=== PATIENT | male | born 1950 | race Caucasian/White ===

== ENCOUNTER 2018-07-25 20:14 | Emergency (ER) | payer MEDICARE ==
[~2018-07-25] VITALS: Ht 170.2 cm; Wt 63.7 kg
[2018-07-25] MEDS ORDERED: SODIUM CHLORIDE 0.9% 1,000 ML IV ONE (20:30)
[2018-07-25] MEDS ORDERED: QUET25TA PO (20:35)
[2018-07-25] MEDS ORDERED: SODIUM CHLORIDE 0.9% 100 ML ONE (20:43)
[2018-07-25] MEDS ORDERED: IOVERSOL 320 MG/ML 100 ML VIAL ONE (20:43)
[2018-07-25 20:58] LABS: CALCIUM, TOTAL 8.8 mg/dL (8.8-10.5); CREATININE 1.57 mg/dL (0.60-1.30); POTASSIUM 4.6 mmol/L (3.5-5.1)
[2018-07-25 21:00] LABS: BASOPHILS % (AUTO) 0.8 % (0.0-2.0); EOSINOPHILS % (AUTO) 5.1 % (1.0-6.0); HEMATOCRIT 35.2 % (41-53); HEMOGLOBIN 11.5 g/dL (13.5-17.5); LYMPHOCYTES # (AUTO) 1.6 K/uL (1.0-4.8); LYMPHOCYTES % (AUTO) 32.8 % (22.0-44.0); MEAN CORPUSCULAR HGB CONC 32.8 G/dL (31.0-37.0); MEAN CORPUSCULAR VOLUME 95 fL (80-100); MONOCYTES # (AUTO) 0.7 K/uL (0.1-1.0); NEUTROPHILS # (AUTO) 2.3 K/uL (1.8-7.7); NEUTROPHILS % (AUTO) 46.3 % (40.0-70.0); PLATELET COUNT (AUTO) 153 K/uL (150-450); RED BLOOD CELL COUNT(AUTO) 3.73 MIL/uL (4.50-5.90); RED CELL DISTRIBUTION WIDTH 13.6 % (11.5-14.5)
[2018-07-25 21:03] LABS: ALBUMIN 3.6 g/dL (3.4-5.0); BILIRUBIN,TOTAL 0.3 mg/dL (0.1-1.0); TOTAL PROTEIN, SERUM 7.4 g/dL (6.4-8.2)
[2018-07-25 22:53] LABS: APPEARANCE,URINE CLEAR (CLEAR); BILIRUBIN,URINE NEGATIVE (NEGATIVE); GLUCOSE, URINE (UA) NEGATIVE (NEGATIVE); KETONES,URINE NEGATIVE (NEGATIVE); LEUKOCYTE ESTERASE ,URINE NEGATIVE (NEGATIVE); NITRATE,URINE NEGATIVE (NEGATIVE); OCCULT BLOOD,URINE NEGATIVE (NEGATIVE); PROTEIN,URINE NEGATIVE (NEGATIVE); UROBILINOGEN,URINE 0.2 mg/dL (<=1.0)
[2018-07-25 23:22] LABS: AMPHET/METH SCREEN,URINE NEGATIVE (NEGATIVE); BARBITURATE SCREEN, URINE NEGATIVE (NEGATIVE); BENZODIAZEPINES SCREEN,URINE NEGATIVE (NEGATIVE); CANNABINOID SCREEN,URINE NEGATIVE (NEGATIVE); COCAINE SCREEN,URINE NEGATIVE (NEGATIVE); METHADONE SCREEN, URINE NEGATIVE (NEGATIVE); OPIATE SCREEN,URINE NEGATIVE (NEGATIVE); PHENCYCLIDINE SCREEN,URINE NEGATIVE (NEGATIVE)
[2018-07-26 01:10] VITALS: BP 166/102
== END 2018-07-26 02:33 | disposition home or self-care (01) ==
LOC: EMS 20:19
DX: S30.0XXA Contusion of lower back and pelvis, initial encounter (principal); S30.1XXA Contusion of abdominal wall, initial encounter; F10.129 Alcohol abuse with intoxication, unspecified; N28.9 Disorder of kidney and ureter, unspecified; R41.82 Altered mental status, unspecified; K70.30 Alcoholic cirrhosis of liver without ascites; F17.210 Nicotine dependence, cigarettes, uncomplicated; F20.9 Schizophrenia, unspecified; W19.XXXA Unspecified fall, initial encounter; Y93.89 Activity, other specified; Y92.89 Other specified places as the place of occurrence of the external cause; Y99.8 Other external cause status; Y90.8 Blood alcohol level of 240 mg/100 ml or more
CPT/HCPCS: 36415; 70450; 72125; 74177; 80053; 80307; 81003; 85025; 96360; 99291; 99406; G0480; J7050; Q9967

== ENCOUNTER 2020-10-05 07:00 | Inpatient (IN) | payer MEDICARE ==
[~2020-10-05] VITALS: Ht 170.2 cm; Wt 69.7 kg
[~2020-10-05 07:00] MED LIST: QUET25TA PO
[2020-10-05] MEDS ORDERED: ACETAMINOPHEN 500 MG TABLET PO ONE (07:15)
[2020-10-05] MEDS ORDERED: ANTIHYPERTENSIVE PO (07:17)
[2020-10-05] MEDS ORDERED: QUET100T PO (07:17)
[2020-10-05] MEDS ORDERED: SODIUM CHLORIDE 0.9% 1,000 ML IV ONE (09:05)
[2020-10-05 09:06] LABS: COVID AG,FIA SOURCE NASOPHARYNGEAL
[2020-10-05] MEDS ORDERED: SODIUM CHLORIDE 0.9% 0 ML ONE (09:06)
[2020-10-05 09:18] LABS: BASOPHILS % (AUTO) 0.5 % (0.0-2.0); EOSINOPHILS % (AUTO) 1.9 % (1.0-6.0); HEMATOCRIT 34.2 % (41-53); HEMOGLOBIN 11.2 g/dL (13.5-17.5); LYMPHOCYTES # (AUTO) 0.5 K/uL (1.0-4.8); LYMPHOCYTES % (AUTO) 5.8 % (22.0-44.0); MEAN CORPUSCULAR HEMOGLOBIN 29.1 pg (26.0-34.0); MEAN CORPUSCULAR HGB CONC 32.9 G/dL (31.0-37.0); MEAN CORPUSCULAR VOLUME 89 fL (80-100); MONOCYTES # (AUTO) 1.1 K/uL (0.1-1.0); NEUTROPHILS # (AUTO) 7.3 K/uL (1.8-7.7); NEUTROPHILS % (AUTO) 79.8 % (40.0-70.0); PLATELET COUNT (AUTO) 153 K/uL (150-450); RED BLOOD CELL COUNT(AUTO) 3.86 MIL/uL (4.50-5.90)
[2020-10-05] MEDS ORDERED: BUPIVACAINE/EPI/PF 0.5% 30 ML VIAL ONE (09:24)
[2020-10-05] MEDS ORDERED: 0.9% SODIUM CHLORIDE 10 ML SYRINGE IVP PRN (09:30)
[2020-10-05] MEDS ORDERED: ACETAMINOPHEN 325 MG TABLET PO PRN (09:30)
[2020-10-05] MEDS ORDERED: ONDANSETRON HCL 4 MG/2 ML VIAL IVP PRN (09:30)
[2020-10-05] MEDS ORDERED: BUPIVACAINE HCL/PF 0.5% 30 ML VIAL ONE (09:31)
[2020-10-05] MEDS ORDERED: SODIUM CL IRRIG SOLN BAG 0 ML IRRIG ONE (09:33)
[2020-10-05 09:34] LABS: CALCIUM, TOTAL 8.8 mg/dL (8.8-10.5); CREATININE 1.8 mg/dL (0.60-1.30); POTASSIUM 4.2 mmol/L (3.5-5.1)
[2020-10-05 09:35] LABS: PROTHROMBIN TIME 11.1 SEC (9.4-11.6)
[2020-10-05 09:41] LABS: ALBUMIN 3.4 g/dL (3.4-5.0); BILIRUBIN,TOTAL 0.2 mg/dL (0.1-1.0); TOTAL PROTEIN, SERUM 7.3 g/dL (6.4-8.2)
[2020-10-05] MEDS ORDERED: BUPIVACAINE LIPOSOME/PF 1.3%-13.3MG/ML SUSPENSION 20 ML VIAL INJ ONE (09:45)
[2020-10-05] MEDS ORDERED: TRANEXAMIC ACID 1,000 MG/10 ML VIAL ONE (10:04)
[2020-10-05] MEDS ORDERED: SODIUM CHLORIDE 0.9% 100 ML ONE (10:04)
[2020-10-05] MEDS ORDERED: SUGAMMADEX SODIUM 200 MG/2 ML VIAL IVP ONE ×2 (10:50→11:21)
[2020-10-05] MEDS ORDERED: IPRATROPIUM BROMIDE 0.5 MG/2.5 ML NEB SOLUTION NEB PRN (11:00)
[2020-10-05] MEDS ORDERED: ALBUTEROL SULFATE 2.5 MG/0.5 ML NEB SOLUTION NEB PRN (11:00)
[2020-10-05] MEDS ORDERED: BISACODYL 10 MG RECTAL RECTAL SUPPOSITORY PR PRN (11:00)
[2020-10-05] MEDS ORDERED: SODIUM CHLORIDE 0.9% 1,000 ML ONE (11:30)
[2020-10-05 13:01] VITALS: BP 99/53
[2020-10-05] MEDS ORDERED: ACET160E39 PO (13:21)
[2020-10-05] MEDS ORDERED: GABA-1181 PO (13:21)
[2020-10-05] MEDS ORDERED: ATOR40TA71 PO (13:21)
[2020-10-05] MEDS ORDERED: QUET400T54 PO (13:21)
[2020-10-05] MEDS ORDERED: OMEP20 PO (13:21)
[2020-10-05] MEDS ORDERED: AMLO5TAB66 PO (13:21)
[2020-10-05 15:52] VITALS: BP 108/56
[2020-10-05] MEDS: HEPARIN SODIUM,PORCINE 5,000 UNITS/ML VIAL SQ SCH ×2 (16:32→23:43)
[2020-10-05] MEDS: MORPHINE SULFATE 2 MG/ML SYRINGE IVP PRN (17:49)
[2020-10-05 19:05] VITALS: BP 108/62
[2020-10-05] MEDS: DOCUSATE SODIUM 100 MG CAPSULE PO SCH (20:35)
[2020-10-05 23:30] VITALS: BP 128/75
[2020-10-05] MEDS: ZOLPIDEM TARTRATE 5 MG TABLET PO PRN (23:43)
[2020-10-06] MEDS: MAGNESIUM HYDROXIDE SUSPENSION 30 ML UDCUP PO PRN (02:52)
[2020-10-06 04:10] VITALS: BP 130/73
[2020-10-06] MEDS ORDERED: FentaNYL CITRATE PF 100 MCG/2 ML VIAL IVP ONE (06:11)
[2020-10-06] MEDS ORDERED: ONDANSETRON HCL 4 MG/2 ML VIAL IVP ONE (06:11)
[2020-10-06] MEDS ORDERED: 0.9% SODIUM CHLORIDE 10 ML VIAL IVP ONE (06:11)
[2020-10-06] MEDS ORDERED: PROPOFOL 1% 20 ML VIAL IVP ONE (06:11)
[2020-10-06] MEDS ORDERED: LIDOCAINE/PF 2% 5 ML VIAL IM ONE (06:11)
[2020-10-06] MEDS ORDERED: PHENYLEPHRINE HCL 10 MG/ML VIAL IVP ONE (06:11)
[2020-10-06] MEDS ORDERED: MIDAZOLAM HCL 2 MG/2 ML VIAL IVP ONE (06:11)
[2020-10-06] MEDS ORDERED: ROCURONIUM BROMIDE 10 MG/ML 5 ML VIAL IVP ONE (06:11)
[2020-10-06] MEDS ORDERED: DEXAMETHASONE SOD PHOS 4 MG/ML VIAL IVP ONE (06:11)
[2020-10-06] MEDS: HYDROCODONE/ACETAMINOPHEN 5-325 MG TABLET PO PRN ×2 (08:03→20:47)
[2020-10-06 08:04] VITALS: BP 121/75
[2020-10-06] MEDS: HEPARIN SODIUM,PORCINE 5,000 UNITS/ML VIAL SQ SCH ×2 (08:05→16:18)
[2020-10-06] MEDS: DOCUSATE SODIUM 100 MG CAPSULE PO SCH ×2 (08:05→20:39)
[2020-10-06 15:36] VITALS: BP 122/63
[2020-10-06 20:16] VITALS: BP 126/79
[2020-10-06] MEDS: ZOLPIDEM TARTRATE 5 MG TABLET PO PRN (20:40)
[2020-10-06 23:47] VITALS: BP 123/75
[2020-10-07] VITALS (15 sets, daily range): BP systolic 114–145; BP diastolic 62–91
[2020-10-07] MEDS: MORPHINE SULFATE 2 MG/ML SYRINGE IVP PRN ×2 (00:03→08:35)
[2020-10-07] MEDS: MAGNESIUM HYDROXIDE SUSPENSION 30 ML UDCUP PO PRN (00:03)
[2020-10-07] MEDS: HEPARIN SODIUM,PORCINE 5,000 UNITS/ML VIAL SQ SCH ×2 (00:12→08:35)
[2020-10-07] MEDS: HYDROCODONE/ACETAMINOPHEN 5-325 MG TABLET PO PRN ×2 (04:48→20:22)
[2020-10-07] MEDS: DOCUSATE SODIUM 100 MG CAPSULE PO SCH ×2 (08:35→20:21)
[2020-10-07] MEDS: ONDANSETRON HCL 4 MG/2 ML VIAL IVP PRN (11:13)
[2020-10-07 15:15] LABS: BASOPHILS % (AUTO) 0.6 % (0.0-2.0); EOSINOPHILS % (AUTO) 0.7 % (1.0-6.0); LYMPHOCYTES # (AUTO) 0.9 K/uL (1.0-4.8); LYMPHOCYTES % (AUTO) 12.4 % (22.0-44.0); MEAN CORPUSCULAR HEMOGLOBIN 29.2 pg (26.0-34.0); MEAN CORPUSCULAR HGB CONC 32.4 G/dL (31.0-37.0); MEAN CORPUSCULAR VOLUME 90 fL (80-100); MONOCYTES # (AUTO) 1.6 K/uL (0.1-1.0); MONOCYTES % (AUTO) 21.8 % (2.0-9.0); NEUTROPHILS # (AUTO) 4.7 K/uL (1.8-7.7); NEUTROPHILS % (AUTO) 64.5 % (40.0-70.0); PLATELET COUNT (AUTO) 159 K/uL (150-450); RED BLOOD CELL COUNT(AUTO) 2.26 MIL/uL (4.50-5.90); RED CELL DISTRIBUTION WIDTH 14.7 % (11.5-14.5)
[2020-10-07 15:17] LABS: CALCIUM, TOTAL 8.6 mg/dL (8.8-10.5); CREATININE 1.84 mg/dL (0.60-1.30)
[2020-10-07 15:22] LABS: HEMATOCRIT 20.4 % (41-53); HEMOGLOBIN 6.6 g/dL (13.5-17.5)
[2020-10-07 15:24] LABS: ALBUMIN 2.9 g/dL (3.4-5.0); BILIRUBIN,TOTAL 0.3 mg/dL (0.1-1.0); TOTAL PROTEIN, SERUM 6.4 g/dL (6.4-8.2)
[2020-10-07 16:22] LABS: HEMATOCRIT 19.2 % (41-53); HEMOGLOBIN 6.2 g/dL (13.5-17.5)
[2020-10-07] MEDS ORDERED: SODIUM CHLORIDE 0.9% 1,000 ML ONE (16:36)
[2020-10-07] MEDS ORDERED: SODIUM CHLORIDE 0.9% 500 ML IV ONE (16:46)
[2020-10-07] MEDS: RIVAROXABAN 10 MG TABLET PO SCH (17:19)
[2020-10-07] MEDS ORDERED: IOHEXOL 350 MG/ML 100 ML VIAL ONE (18:15)
[2020-10-07] MEDS ORDERED: SODIUM CHLORIDE 0.9% 100 ML ONE (18:16)
[2020-10-08] MEDS: ZOLPIDEM TARTRATE 5 MG TABLET PO PRN ×2 (00:07→23:52)
[2020-10-08 04:05] VITALS: BP 109/63
[2020-10-08] MEDS: HYDROCODONE/ACETAMINOPHEN 5-325 MG TABLET PO PRN ×2 (05:40→12:57)
[2020-10-08 06:14] LABS: BASOPHILS % (AUTO) 0.3 % (0.0-2.0); EOSINOPHILS % (AUTO) 0.9 % (1.0-6.0); HEMATOCRIT 22.5 % (41-53); HEMOGLOBIN 7.6 g/dL (13.5-17.5); LYMPHOCYTES # (AUTO) 0.9 K/uL (1.0-4.8); LYMPHOCYTES % (AUTO) 11.8 % (22.0-44.0); MEAN CORPUSCULAR HEMOGLOBIN 29.9 pg (26.0-34.0); MEAN CORPUSCULAR HGB CONC 33.8 G/dL (31.0-37.0); MEAN CORPUSCULAR VOLUME 89 fL (80-100); MONOCYTES # (AUTO) 1.5 K/uL (0.1-1.0); MONOCYTES % (AUTO) 19.1 % (2.0-9.0); NEUTROPHILS # (AUTO) 5.4 K/uL (1.8-7.7); NEUTROPHILS % (AUTO) 67.9 % (40.0-70.0); PLATELET COUNT (AUTO) 147 K/uL (150-450); RED BLOOD CELL COUNT(AUTO) 2.54 MIL/uL (4.50-5.90); RED CELL DISTRIBUTION WIDTH 14.4 % (11.5-14.5)
[2020-10-08 06:35] LABS: ALBUMIN 2.7 g/dL (3.4-5.0); BILIRUBIN,TOTAL 0.4 mg/dL (0.1-1.0); CALCIUM, TOTAL 8.4 mg/dL (8.8-10.5); CREATININE 1.56 mg/dL (0.60-1.30); POTASSIUM 4.7 mmol/L (3.5-5.1); TOTAL PROTEIN, SERUM 6.2 g/dL (6.4-8.2)
[2020-10-08 08:05] VITALS: BP 110/57
[2020-10-08] MEDS: DOCUSATE SODIUM 100 MG CAPSULE PO SCH ×2 (08:25→21:03)
[2020-10-08] MEDS: NICOTINE 21 MG/24 HOUR PATCH TD SCH (11:08)
[2020-10-08 12:42] LABS: BASOPHILS % (AUTO) 0.5 % (0.0-2.0); EOSINOPHILS % (AUTO) 0.6 % (1.0-6.0); HEMATOCRIT 22.5 % (41-53); HEMOGLOBIN 7.4 g/dL (13.5-17.5); LYMPHOCYTES % (AUTO) 13.8 % (22.0-44.0); MEAN CORPUSCULAR HEMOGLOBIN 29.3 pg (26.0-34.0); MEAN CORPUSCULAR HGB CONC 32.9 G/dL (31.0-37.0); MEAN CORPUSCULAR VOLUME 89 fL (80-100); MONOCYTES # (AUTO) 1.4 K/uL (0.1-1.0); MONOCYTES % (AUTO) 20.2 % (2.0-9.0); NEUTROPHILS # (AUTO) 4.5 K/uL (1.8-7.7); NEUTROPHILS % (AUTO) 64.9 % (40.0-70.0); PLATELET COUNT (AUTO) 152 K/uL (150-450); RED BLOOD CELL COUNT(AUTO) 2.53 MIL/uL (4.50-5.90); RED CELL DISTRIBUTION WIDTH 14.7 % (11.5-14.5)
[2020-10-08] MEDS: PANTOPRAZOLE SODIUM 40 MG/VIAL IVP SCH ×2 (12:44→21:03)
[2020-10-08] MEDS: RIVAROXABAN 10 MG TABLET PO SCH (12:47)
[2020-10-08] MEDS: ONDANSETRON HCL 4 MG/2 ML VIAL IVP PRN (13:54)
[2020-10-08 15:22] VITALS: BP 137/60
[2020-10-08 19:51] VITALS: BP 145/76
[2020-10-08 23:03] VITALS: BP 133/61
[2020-10-09] MEDS: ACETAMINOPHEN 325 MG TABLET PO PRN ×2 (00:05→09:37)
[2020-10-09 04:00] VITALS: BP 140/64
[2020-10-09] MEDS: HYDROCODONE/ACETAMINOPHEN 5-325 MG TABLET PO PRN (06:46)
[2020-10-09 06:52] LABS: HEMATOCRIT 23.2 % (41-53); HEMOGLOBIN 7.8 g/dL (13.5-17.5); MEAN CORPUSCULAR HEMOGLOBIN 30.1 pg (26.0-34.0); MEAN CORPUSCULAR HGB CONC 33.4 G/dL (31.0-37.0); MEAN CORPUSCULAR VOLUME 90 fL (80-100); PLATELET COUNT (AUTO) 181 K/uL (150-450); RED BLOOD CELL COUNT(AUTO) 2.58 MIL/uL (4.50-5.90); RED CELL DISTRIBUTION WIDTH 14.5 % (11.5-14.5)
[2020-10-09 07:10] LABS: ALBUMIN 2.7 g/dL (3.4-5.0); BILIRUBIN,TOTAL 0.5 mg/dL (0.1-1.0); CALCIUM, TOTAL 8.5 mg/dL (8.8-10.5); CREATININE 1.24 mg/dL (0.60-1.30); POTASSIUM 4.6 mmol/L (3.5-5.1); TOTAL PROTEIN, SERUM 6.5 g/dL (6.4-8.2)
[2020-10-09 08:09] VITALS: BP 138/70
[2020-10-09 08:33] LABS: BAND NEUTROPHILS % (MANUAL) 0 % (0-5)
[2020-10-09 08:38] LABS: EOSINOPHILS % (MANUAL) 4 % (1-6); LYMPHOCYTES % (MANUAL) 21 % (22-44); MONOCYTES % (MANUAL) 19 % (2-9); MYELOCYTES % 1 % (0-0); SEGMENTED NEUTROPHILS % 55 % (40-70)
[2020-10-09] MEDS: NICOTINE 21 MG/24 HOUR PATCH TD SCH (09:37)
[2020-10-09] MEDS: DOCUSATE SODIUM 100 MG CAPSULE PO SCH (09:37)
[2020-10-09] MEDS: PANTOPRAZOLE SODIUM 40 MG/VIAL IVP SCH (09:37)
[2020-10-09 15:11] VITALS: BP 148/69
[2020-10-10] MEDS ORDERED: ACET-2247 PO (15:38)
== END 2020-10-09 16:35 | DRG 481 ==
LOC: EMS 07:00 → 6S 09:53
PROVIDERS: ADMIT Hospitalist; ATTEND Hospitalist
PROC: 0QS734Z Reposition Left Upper Femur with Internal Fixation Device, Percutaneous Approach (ICD-10-PCS; principal; 2020-10-05 10:00)
DX: S72.102A Unspecified trochanteric fracture of left femur, initial encounter for closed fracture (principal); E87.1 Hypo-osmolality and hyponatremia; I10 Essential (primary) hypertension; F20.9 Schizophrenia, unspecified; E78.5 Hyperlipidemia, unspecified; D64.9 Anemia, unspecified; W18.39XA Other fall on same level, initial encounter; Y93.89 Activity, other specified; Y92.89 Other specified places as the place of occurrence of the external cause; Y99.8 Other external cause status; Z87.891 Personal history of nicotine dependence; Z20.822 Contact with and (suspected) exposure to COVID-19
CPT/HCPCS: 71045; 73503; 73552; 80053; 82270; 85014; 85018; 85025; 85610; 85730; 86850; 86900; 86901; 86923; 87081; 93005; 97110; 97112; 97162; 97167; 97530; 97535; 99285; A9575; C9113; C9290; J0690; J1100; J1644; J2250; J2270; J2370; J2405; J2704; J3010; J3490; J7030; J7040; J7050; P9016; 36415-L1; 36415-TC; C1716; Z7610

== ENCOUNTER 2020-10-09 16:10 | Inpatient (IN) | payer MEDICARE ==
[~2020-10-09] VITALS: Ht 170.2 cm; Wt 64.4 kg
[~2020-10-09 16:10] MED LIST changes: +ACET160E39 PO; +AMLO5TAB66 PO; +ANTIHYPERTENSIVE PO; +ATOR40TA71 PO; +GABA-1181 PO; +OMEP20 PO; +QUET100T PO; -QUET25TA PO; +QUET400T54 PO
[2020-10-09 16:30] VITALS: BP 156/77
[2020-10-09] MEDS ORDERED: ACETAMINOPHEN 325 MG TABLET PO PRN (17:15)
[2020-10-09] MEDS ORDERED: MELATONIN 3 MG TABLET PO PRN (17:15)
[2020-10-09] MEDS: RIVAROXABAN 10 MG TABLET PO SCH (19:56)
[2020-10-09] MEDS: SENNA 187 MG TABLET PO SCH (19:57)
[2020-10-09] MEDS: DOCUSATE SODIUM 100 MG CAPSULE PO SCH (19:57)
[2020-10-09] MEDS: ETHYL ALCOHOL 62% ANTISEPTIC NASAL INHALANT 0.6 ML AMPUL NASAL SCH (20:04)
[2020-10-09] MEDS ORDERED: QUEtiapine FUMARATE 200 MG TABLET PO SCH (21:00)
[2020-10-09] MEDS ORDERED: QUEtiapine FUMARATE 200 MG TABLET PO ONE ×2 (21:00)
[2020-10-10 04:23] VITALS: BP 116/72
[2020-10-10 07:24] LABS: HEMATOCRIT 25.5 % (41-53); HEMOGLOBIN 8.5 g/dL (13.5-17.5); MEAN CORPUSCULAR HGB CONC 33.1 G/dL (31.0-37.0); MEAN CORPUSCULAR VOLUME 90 fL (80-100); PLATELET COUNT (AUTO) 183 K/uL (150-450); RED BLOOD CELL COUNT(AUTO) 2.83 MIL/uL (4.50-5.90); RED CELL DISTRIBUTION WIDTH 14.6 % (11.5-14.5)
[2020-10-10 07:28] LABS: BAND NEUTROPHILS % (MANUAL) 0 % (0-5)
[2020-10-10 07:29] LABS: EOSINOPHILS % (MANUAL) 3 % (1-6); LYMPHOCYTES % (MANUAL) 19 % (22-44); MONOCYTES % (MANUAL) 19 % (2-9); MYELOCYTES % 1 % (0-0); SEGMENTED NEUTROPHILS % 58 % (40-70)
[2020-10-10 07:43] LABS: ALBUMIN 2.9 g/dL (3.4-5.0); BILIRUBIN,TOTAL 0.7 mg/dL (0.1-1.0); CREATININE 1.5 mg/dL (0.60-1.30); POTASSIUM 4.6 mmol/L (3.5-5.1)
[2020-10-10] MEDS: DOCUSATE SODIUM 100 MG CAPSULE PO SCH ×2 (08:25→20:38)
[2020-10-10] MEDS: ETHYL ALCOHOL 62% ANTISEPTIC NASAL INHALANT 0.6 ML AMPUL NASAL SCH ×2 (08:26→20:38)
[2020-10-10] MEDS: NICOTINE 21 MG/24 HOUR PATCH TD SCH (08:26)
[2020-10-10] MEDS: OMEPRAZOLE 20 MG CAPSULE PO SCH (08:26)
[2020-10-10 09:06] VITALS: BP 122/66
[2020-10-10] MEDS: HYDROCODONE/ACETAMINOPHEN 10-325 MG TABLET PO PRN ×2 (09:06→14:26)
[2020-10-10] MEDS: MULTIVITAMINS WITH IRON TABLET PO SCH (12:57)
[2020-10-10] MEDS ORDERED: ACET-2247 PO (15:38)
[2020-10-10 16:00] VITALS: BP 119/67
[2020-10-10] MEDS ORDERED: QUEtiapine FUMARATE 200 MG TABLET PO SCH (16:00)
[2020-10-10] MEDS: RIVAROXABAN 10 MG TABLET PO SCH (17:51)
[2020-10-10] MEDS: GABAPENTIN 300 MG CAPSULE PO SCH (20:38)
[2020-10-10] MEDS: ATORVASTATIN CALCIUM 40 MG TABLET PO SCH (20:39)
[2020-10-10] MEDS: QUEtiapine FUMARATE 200 MG TABLET PO SCH (20:39)
[2020-10-10] MEDS: SENNA 187 MG TABLET PO SCH (20:40)
[2020-10-11 05:15] VITALS: BP 134/78
[2020-10-11 08:01] VITALS: BP 147/77
[2020-10-11] MEDS: MULTIVITAMINS WITH IRON TABLET PO SCH (08:11)
[2020-10-11] MEDS: OMEPRAZOLE 20 MG CAPSULE PO SCH (08:12)
[2020-10-11] MEDS: DOCUSATE SODIUM 100 MG CAPSULE PO SCH ×2 (08:12→21:02)
[2020-10-11] MEDS: NICOTINE 21 MG/24 HOUR PATCH TD SCH (08:12)
[2020-10-11] MEDS: QUEtiapine FUMARATE 200 MG TABLET PO SCH (08:13)
[2020-10-11] MEDS: HYDROCODONE/ACETAMINOPHEN 10-325 MG TABLET PO PRN (08:13)
[2020-10-11] MEDS: ETHYL ALCOHOL 62% ANTISEPTIC NASAL INHALANT 0.6 ML AMPUL NASAL SCH ×2 (08:14→21:02)
[2020-10-11 16:03] VITALS: BP 113/69
[2020-10-11] MEDS: RIVAROXABAN 10 MG TABLET PO SCH (17:51)
[2020-10-11] MEDS ORDERED: QUEtiapine FUMARATE 200 MG TABLET PO SCH (21:00)
[2020-10-11] MEDS: GABAPENTIN 300 MG CAPSULE PO SCH (21:02)
[2020-10-11] MEDS: SENNA 187 MG TABLET PO SCH (21:02)
[2020-10-11] MEDS: ATORVASTATIN CALCIUM 40 MG TABLET PO SCH (21:03)
[2020-10-12 05:10] VITALS: BP 121/70
[2020-10-12] MEDS: ETHYL ALCOHOL 62% ANTISEPTIC NASAL INHALANT 0.6 ML AMPUL NASAL SCH ×2 (07:50→20:15)
[2020-10-12 07:51] VITALS: BP 128/77
[2020-10-12] MEDS: MULTIVITAMINS WITH IRON TABLET PO SCH (07:51)
[2020-10-12] MEDS: DOCUSATE SODIUM 100 MG CAPSULE PO SCH ×2 (07:51→20:14)
[2020-10-12] MEDS: NICOTINE 21 MG/24 HOUR PATCH TD SCH (07:51)
[2020-10-12] MEDS: OMEPRAZOLE 20 MG CAPSULE PO SCH (07:51)
[2020-10-12] MEDS: HYDROCODONE/ACETAMINOPHEN 10-325 MG TABLET PO PRN ×2 (07:51→14:03)
[2020-10-12] MEDS ORDERED: QUEtiapine FUMARATE 200 MG TABLET PO SCH (09:00)
[2020-10-12 15:44] VITALS: BP 107/60
[2020-10-12] MEDS: QUEtiapine FUMARATE 200 MG TABLET PO SCH ×2 (15:51→20:15)
[2020-10-12] MEDS: RIVAROXABAN 10 MG TABLET PO SCH (18:55)
[2020-10-12] MEDS: ATORVASTATIN CALCIUM 40 MG TABLET PO SCH (20:15)
[2020-10-12] MEDS: SENNA 187 MG TABLET PO SCH (20:15)
[2020-10-12] MEDS: GABAPENTIN 300 MG CAPSULE PO SCH (20:15)
[2020-10-13 05:05] VITALS: BP 132/64
[2020-10-13 05:18] LABS: BASOPHILS % (AUTO) 0.7 % (0.0-2.0); EOSINOPHILS % (AUTO) 7.7 % (1.0-6.0); LYMPHOCYTES # (AUTO) 1.1 K/uL (1.0-4.8); LYMPHOCYTES % (AUTO) 15.5 % (22.0-44.0); MEAN CORPUSCULAR HEMOGLOBIN 29.5 pg (26.0-34.0); MEAN CORPUSCULAR HGB CONC 32.6 G/dL (31.0-37.0); MEAN CORPUSCULAR VOLUME 90 fL (80-100); MONOCYTES # (AUTO) 1.5 K/uL (0.1-1.0); MONOCYTES % (AUTO) 20.8 % (2.0-9.0); NEUTROPHILS % (AUTO) 55.3 % (40.0-70.0); PLATELET COUNT (AUTO) 193 K/uL (150-450); RED BLOOD CELL COUNT(AUTO) 2.24 MIL/uL (4.50-5.90); RED CELL DISTRIBUTION WIDTH 15.2 % (11.5-14.5)
[2020-10-13 05:19] LABS: CALCIUM, TOTAL 8.4 mg/dL (8.8-10.5); CREATININE 1.59 mg/dL (0.60-1.30); POTASSIUM 4.5 mmol/L (3.5-5.1)
[2020-10-13 05:22] LABS: HEMATOCRIT 20.2 % (41-53); HEMOGLOBIN 6.6 g/dL (13.5-17.5)
[2020-10-13 06:56] LABS: HEMATOCRIT 21.5 % (41-53); HEMOGLOBIN 7.1 g/dL (13.5-17.5); MEAN CORPUSCULAR HEMOGLOBIN 29.7 pg (26.0-34.0); MEAN CORPUSCULAR HGB CONC 32.8 G/dL (31.0-37.0); MEAN CORPUSCULAR VOLUME 91 fL (80-100); PLATELET COUNT (AUTO) 199 K/uL (150-450); RED BLOOD CELL COUNT(AUTO) 2.37 MIL/uL (4.50-5.90); RED CELL DISTRIBUTION WIDTH 14.8 % (11.5-14.5)
[2020-10-13] MEDS: QUEtiapine FUMARATE 200 MG TABLET PO SCH ×3 (08:10→20:09)
[2020-10-13] MEDS: OMEPRAZOLE 20 MG CAPSULE PO SCH (08:10)
[2020-10-13] MEDS: MULTIVITAMINS WITH IRON TABLET PO SCH (08:10)
[2020-10-13] MEDS: NICOTINE 21 MG/24 HOUR PATCH TD SCH (08:10)
[2020-10-13] MEDS: ETHYL ALCOHOL 62% ANTISEPTIC NASAL INHALANT 0.6 ML AMPUL NASAL SCH ×2 (08:10→20:09)
[2020-10-13] MEDS: DOCUSATE SODIUM 250 MG CAPSULE PO SCH ×2 (08:10→20:10)
[2020-10-13 08:39] VITALS: BP 111/70
[2020-10-13] MEDS: HYDROCODONE/ACETAMINOPHEN 10-325 MG TABLET PO PRN ×2 (08:39→13:51)
[2020-10-13 09:12] LABS: BAND NEUTROPHILS % (MANUAL) 1 % (0-5); BASOPHILS % (MANUAL) 1 % (0-2); EOSINOPHILS % (MANUAL) 4 % (1-6); LYMPHOCYTES % (MANUAL) 15 % (22-44); MONOCYTES % (MANUAL) 17 % (2-9); MYELOCYTES % 1 % (0-0); SEGMENTED NEUTROPHILS % 61 % (40-70)
[2020-10-13] MEDS: APIXABAN 2.5 MG TABLET PO SCH ×2 (09:24→20:09)
[2020-10-13 15:28] VITALS: BP 131/69
[2020-10-13] MEDS: FERROUS GLUCONATE 324 MG TABLET PO SCH (17:16)
[2020-10-13] MEDS: HYDROCODONE/ACETAMINOPHEN 5-325 MG TABLET PO PRN (18:02)
[2020-10-13] MEDS: GABAPENTIN 300 MG CAPSULE PO SCH (20:09)
[2020-10-13] MEDS: ATORVASTATIN CALCIUM 40 MG TABLET PO SCH (20:09)
[2020-10-13] MEDS: SENNA 187 MG TABLET PO SCH (20:10)
[2020-10-14 00:40] VITALS: BP 110/58
[2020-10-14] MEDS: MULTIVITAMINS WITH IRON TABLET PO SCH (08:00)
[2020-10-14] MEDS: QUEtiapine FUMARATE 200 MG TABLET PO SCH ×3 (08:00→20:06)
[2020-10-14] MEDS: OMEPRAZOLE 20 MG CAPSULE PO SCH (08:00)
[2020-10-14] MEDS: NICOTINE 21 MG/24 HOUR PATCH TD SCH (08:00)
[2020-10-14] MEDS: ETHYL ALCOHOL 62% ANTISEPTIC NASAL INHALANT 0.6 ML AMPUL NASAL SCH ×2 (08:00→20:06)
[2020-10-14] MEDS: FERROUS GLUCONATE 324 MG TABLET PO SCH ×2 (08:00→17:40)
[2020-10-14] MEDS: DOCUSATE SODIUM 250 MG CAPSULE PO SCH ×2 (08:00→20:06)
[2020-10-14] MEDS: APIXABAN 2.5 MG TABLET PO SCH ×2 (08:00→20:06)
[2020-10-14 09:04] VITALS: BP 138/67
[2020-10-14] MEDS: HYDROCODONE/ACETAMINOPHEN 5-325 MG TABLET PO PRN ×2 (09:04→13:14)
[2020-10-14 12:44] LABS: BASOPHILS % (AUTO) 0.3 % (0.0-2.0); HEMATOCRIT 23.2 % (41-53); HEMOGLOBIN 7.4 g/dL (13.5-17.5); LYMPHOCYTES # (AUTO) 0.9 K/uL (1.0-4.8); LYMPHOCYTES % (AUTO) 13.6 % (22.0-44.0); MEAN CORPUSCULAR HEMOGLOBIN 29.1 pg (26.0-34.0); MEAN CORPUSCULAR VOLUME 91 fL (80-100); MONOCYTES # (AUTO) 1.1 K/uL (0.1-1.0); MONOCYTES % (AUTO) 16.6 % (2.0-9.0); NEUTROPHILS # (AUTO) 4.2 K/uL (1.8-7.7); NEUTROPHILS % (AUTO) 63.5 % (40.0-70.0); PLATELET COUNT (AUTO) 236 K/uL (150-450); RED BLOOD CELL COUNT(AUTO) 2.54 MIL/uL (4.50-5.90); RED CELL DISTRIBUTION WIDTH 15.3 % (11.5-14.5)
[2020-10-14] MEDS ORDERED: MAGNESIUM HYDROXIDE SUSPENSION 30 ML UDCUP PO PRN (15:15)
[2020-10-14 16:43] VITALS: BP 129/57
[2020-10-14] MEDS: ATORVASTATIN CALCIUM 40 MG TABLET PO SCH (20:06)
[2020-10-14] MEDS: GABAPENTIN 300 MG CAPSULE PO SCH (20:06)
[2020-10-14] MEDS: SENNA 187 MG TABLET PO SCH (20:06)
[2020-10-15] VITALS: BP 142/75
[2020-10-15] MEDS: ETHYL ALCOHOL 62% ANTISEPTIC NASAL INHALANT 0.6 ML AMPUL NASAL SCH ×2 (08:08→21:47)
[2020-10-15 08:09] VITALS: BP 134/70
[2020-10-15] MEDS: HYDROCODONE/ACETAMINOPHEN 5-325 MG TABLET PO PRN (08:09)
[2020-10-15] MEDS: QUEtiapine FUMARATE 200 MG TABLET PO SCH ×3 (08:10→21:50)
[2020-10-15] MEDS: FERROUS GLUCONATE 324 MG TABLET PO SCH ×2 (08:10→16:50)
[2020-10-15] MEDS: DOCUSATE SODIUM 250 MG CAPSULE PO SCH ×2 (08:10→21:48)
[2020-10-15] MEDS: OMEPRAZOLE 20 MG CAPSULE PO SCH (08:10)
[2020-10-15] MEDS: MULTIVITAMINS WITH IRON TABLET PO SCH (08:10)
[2020-10-15] MEDS: NICOTINE 21 MG/24 HOUR PATCH TD SCH (08:10)
[2020-10-15] MEDS: APIXABAN 2.5 MG TABLET PO SCH ×2 (08:13→21:49)
[2020-10-15 17:40] VITALS: BP 127/61
[2020-10-15] MEDS: SENNA 187 MG TABLET PO SCH (21:48)
[2020-10-15] MEDS: ATORVASTATIN CALCIUM 40 MG TABLET PO SCH (21:49)
[2020-10-15] MEDS: GABAPENTIN 300 MG CAPSULE PO SCH (21:49)
[2020-10-16] VITALS: BP 131/63
[2020-10-16 06:19] LABS: HEMATOCRIT 22.6 % (41-53); HEMOGLOBIN 7.3 g/dL (13.5-17.5); MEAN CORPUSCULAR HEMOGLOBIN 29.3 pg (26.0-34.0); MEAN CORPUSCULAR HGB CONC 32.4 G/dL (31.0-37.0); MEAN CORPUSCULAR VOLUME 90 fL (80-100); PLATELET COUNT (AUTO) 236 K/uL (150-450); RED CELL DISTRIBUTION WIDTH 15.5 % (11.5-14.5)
[2020-10-16 06:54] LABS: CALCIUM, TOTAL 9.1 mg/dL (8.8-10.5); CREATININE 1.41 mg/dL (0.60-1.30); POTASSIUM 4.6 mmol/L (3.5-5.1)
[2020-10-16] MEDS: DOCUSATE SODIUM 250 MG CAPSULE PO SCH ×2 (07:35→20:16)
[2020-10-16] MEDS: APIXABAN 2.5 MG TABLET PO SCH ×2 (07:35→20:16)
[2020-10-16] MEDS: ETHYL ALCOHOL 62% ANTISEPTIC NASAL INHALANT 0.6 ML AMPUL NASAL SCH ×2 (07:35→20:17)
[2020-10-16] MEDS: QUEtiapine FUMARATE 200 MG TABLET PO SCH ×3 (07:35→20:16)
[2020-10-16] MEDS: MULTIVITAMINS WITH IRON TABLET PO SCH (07:35)
[2020-10-16] MEDS: NICOTINE 21 MG/24 HOUR PATCH TD SCH (07:35)
[2020-10-16] MEDS: OMEPRAZOLE 20 MG CAPSULE PO SCH (07:35)
[2020-10-16] MEDS: FERROUS GLUCONATE 324 MG TABLET PO SCH ×2 (07:35→17:55)
[2020-10-16 07:54] LABS: BAND NEUTROPHILS % (MANUAL) 0 % (0-5)
[2020-10-16 07:56] LABS: EOSINOPHILS % (MANUAL) 8 % (1-6); LYMPHOCYTES % (MANUAL) 18 % (22-44); MONOCYTES % (MANUAL) 7 % (2-9); SEGMENTED NEUTROPHILS % 67 % (40-70)
[2020-10-16 08:01] VITALS: BP 138/76
[2020-10-16 16:13] VITALS: BP 146/78
[2020-10-16] MEDS: SENNA 187 MG TABLET PO SCH (20:16)
[2020-10-16] MEDS: GABAPENTIN 300 MG CAPSULE PO SCH (20:16)
[2020-10-16] MEDS: ATORVASTATIN CALCIUM 40 MG TABLET PO SCH (20:16)
[2020-10-16 23:20] VITALS: BP 144/70
[2020-10-17 08:30] VITALS: BP 144/75
[2020-10-17] MEDS: FERROUS GLUCONATE 324 MG TABLET PO SCH ×2 (08:36→17:30)
[2020-10-17] MEDS: DOCUSATE SODIUM 250 MG CAPSULE PO SCH ×2 (08:36→20:12)
[2020-10-17] MEDS: MULTIVITAMINS WITH IRON TABLET PO SCH (08:36)
[2020-10-17] MEDS: QUEtiapine FUMARATE 200 MG TABLET PO SCH ×3 (08:37→20:12)
[2020-10-17] MEDS: OMEPRAZOLE 20 MG CAPSULE PO SCH (08:37)
[2020-10-17] MEDS: APIXABAN 2.5 MG TABLET PO SCH ×2 (08:37→20:12)
[2020-10-17] MEDS: NICOTINE 21 MG/24 HOUR PATCH TD SCH (08:37)
[2020-10-17] MEDS: ETHYL ALCOHOL 62% ANTISEPTIC NASAL INHALANT 0.6 ML AMPUL NASAL SCH ×2 (08:38→20:12)
[2020-10-17] MEDS: HYDROCODONE/ACETAMINOPHEN 5-325 MG TABLET PO PRN (11:11)
[2020-10-17 16:29] VITALS: BP 124/75
[2020-10-17] MEDS: SENNA 187 MG TABLET PO SCH (20:12)
[2020-10-17] MEDS: ATORVASTATIN CALCIUM 40 MG TABLET PO SCH (20:12)
[2020-10-17] MEDS: GABAPENTIN 300 MG CAPSULE PO SCH (20:12)
[2020-10-18] VITALS: BP 133/63
[2020-10-18] MEDS ORDERED: APIX2.5T PO (04:44)
[2020-10-18] MEDS ORDERED: MVITFE PO (04:44)
[2020-10-18] MEDS ORDERED: FERR324T23 PO (04:44)
[2020-10-18] MEDS: OMEPRAZOLE 20 MG CAPSULE PO SCH (07:58)
[2020-10-18] MEDS: FERROUS GLUCONATE 324 MG TABLET PO SCH ×2 (07:58→17:39)
[2020-10-18] MEDS: MULTIVITAMINS WITH IRON TABLET PO SCH (07:58)
[2020-10-18] MEDS: QUEtiapine FUMARATE 200 MG TABLET PO SCH ×3 (07:58→20:38)
[2020-10-18] MEDS: ETHYL ALCOHOL 62% ANTISEPTIC NASAL INHALANT 0.6 ML AMPUL NASAL SCH ×2 (07:58→20:38)
[2020-10-18] MEDS: APIXABAN 2.5 MG TABLET PO SCH ×2 (07:58→20:38)
[2020-10-18] MEDS: DOCUSATE SODIUM 250 MG CAPSULE PO SCH ×2 (07:58→20:38)
[2020-10-18] MEDS: NICOTINE 21 MG/24 HOUR PATCH TD SCH (07:59)
[2020-10-18 08:36] VITALS: BP 134/76
[2020-10-18 12:39] LABS: BASOPHILS % (AUTO) 0.7 % (0.0-2.0); EOSINOPHILS % (AUTO) 3.6 % (1.0-6.0); HEMOGLOBIN 7.5 g/dL (13.5-17.5); LYMPHOCYTES % (AUTO) 10.6 % (22.0-44.0); MEAN CORPUSCULAR HEMOGLOBIN 29.1 pg (26.0-34.0); MEAN CORPUSCULAR HGB CONC 32.5 G/dL (31.0-37.0); MEAN CORPUSCULAR VOLUME 90 fL (80-100); MONOCYTES # (AUTO) 1.5 K/uL (0.1-1.0); NEUTROPHILS # (AUTO) 6.4 K/uL (1.8-7.7); NEUTROPHILS % (AUTO) 69.1 % (40.0-70.0); PLATELET COUNT (AUTO) 250 K/uL (150-450); RED BLOOD CELL COUNT(AUTO) 2.57 MIL/uL (4.50-5.90); RED CELL DISTRIBUTION WIDTH 15.5 % (11.5-14.5)
[2020-10-18 12:45] LABS: CALCIUM, TOTAL 8.9 mg/dL (8.8-10.5); CREATININE 1.54 mg/dL (0.60-1.30); POTASSIUM 4.7 mmol/L (3.5-5.1)
[2020-10-18 16:37] VITALS: BP 130/75
[2020-10-18] MEDS: ATORVASTATIN CALCIUM 40 MG TABLET PO SCH (20:38)
[2020-10-18] MEDS: GABAPENTIN 300 MG CAPSULE PO SCH (20:38)
[2020-10-18] MEDS: SENNA 187 MG TABLET PO SCH (20:38)
[2020-10-18 23:14] VITALS: BP 121/65
[2020-10-18] MEDS: HYDROCODONE/ACETAMINOPHEN 10-325 MG TABLET PO PRN (23:14)
[2020-10-19] MEDS: FERROUS GLUCONATE 324 MG TABLET PO SCH ×2 (07:46→18:28)
[2020-10-19] MEDS: OMEPRAZOLE 20 MG CAPSULE PO SCH (07:46)
[2020-10-19] MEDS: QUEtiapine FUMARATE 200 MG TABLET PO SCH ×3 (07:46→20:23)
[2020-10-19 07:47] VITALS: BP 134/72
[2020-10-19] MEDS: DOCUSATE SODIUM 250 MG CAPSULE PO SCH ×2 (07:47→20:23)
[2020-10-19] MEDS: HYDROCODONE/ACETAMINOPHEN 10-325 MG TABLET PO PRN (07:47)
[2020-10-19] MEDS: NICOTINE 21 MG/24 HOUR PATCH TD SCH (07:47)
[2020-10-19] MEDS: MULTIVITAMINS WITH IRON TABLET PO SCH (07:47)
[2020-10-19] MEDS: APIXABAN 2.5 MG TABLET PO SCH ×2 (07:47→20:23)
[2020-10-19] MEDS: ETHYL ALCOHOL 62% ANTISEPTIC NASAL INHALANT 0.6 ML AMPUL NASAL SCH ×2 (07:48→20:20)
[2020-10-19] MEDS ORDERED: SODIUM CHLORIDE 0.9% 1,000 ML IV ONE ×2 (10:45→11:00)
[2020-10-19] MEDS ORDERED: HYDROCODONE/ACETAMINOPHEN 10-325 MG TABLET PO PRN (17:30)
[2020-10-19 18:00] VITALS: BP 138/65
[2020-10-19] MEDS: SENNA 187 MG TABLET PO SCH (20:22)
[2020-10-19] MEDS: GABAPENTIN 300 MG CAPSULE PO SCH (20:23)
[2020-10-19] MEDS: ATORVASTATIN CALCIUM 40 MG TABLET PO SCH (20:23)
[2020-10-19 23:05] VITALS: BP 136/66
[2020-10-19] MEDS: HYDROCODONE/ACETAMINOPHEN 5-325 MG TABLET PO PRN (23:05)
[2020-10-20] MEDS: ETHYL ALCOHOL 62% ANTISEPTIC NASAL INHALANT 0.6 ML AMPUL NASAL SCH ×2 (08:01→20:10)
[2020-10-20] MEDS: DOCUSATE SODIUM 250 MG CAPSULE PO SCH ×2 (08:01→20:10)
[2020-10-20] MEDS: NICOTINE 21 MG/24 HOUR PATCH TD SCH (08:01)
[2020-10-20] MEDS: OMEPRAZOLE 20 MG CAPSULE PO SCH (08:01)
[2020-10-20 08:02] VITALS: BP 117/72
[2020-10-20] MEDS: MULTIVITAMINS WITH IRON TABLET PO SCH (08:02)
[2020-10-20] MEDS: QUEtiapine FUMARATE 200 MG TABLET PO SCH ×3 (08:02→20:10)
[2020-10-20] MEDS: APIXABAN 2.5 MG TABLET PO SCH ×2 (08:02→20:10)
[2020-10-20] MEDS: FERROUS GLUCONATE 324 MG TABLET PO SCH ×2 (08:02→16:53)
[2020-10-20] MEDS: HYDROCODONE/ACETAMINOPHEN 5-325 MG TABLET PO PRN ×3 (08:02→23:07)
[2020-10-20] MEDS: SENNA 187 MG TABLET PO SCH (20:10)
[2020-10-20] MEDS: GABAPENTIN 300 MG CAPSULE PO SCH (20:10)
[2020-10-20] MEDS: ATORVASTATIN CALCIUM 40 MG TABLET PO SCH (20:10)
[2020-10-20] MEDS: 0.9% SODIUM CHLORIDE 10 ML SYRINGE IVP SCH (22:55)
[2020-10-20 23:07] VITALS: BP 140/71
[2020-10-21 07:03] LABS: BASOPHILS % (AUTO) 0.9 % (0.0-2.0); EOSINOPHILS % (AUTO) 8.1 % (1.0-6.0); HEMATOCRIT 23.8 % (41-53); HEMOGLOBIN 7.7 g/dL (13.5-17.5); LYMPHOCYTES # (AUTO) 1.2 K/uL (1.0-4.8); LYMPHOCYTES % (AUTO) 20.6 % (22.0-44.0); MEAN CORPUSCULAR HEMOGLOBIN 29.3 pg (26.0-34.0); MEAN CORPUSCULAR HGB CONC 32.5 G/dL (31.0-37.0); MEAN CORPUSCULAR VOLUME 90 fL (80-100); MONOCYTES # (AUTO) 1.3 K/uL (0.1-1.0); MONOCYTES % (AUTO) 21.3 % (2.0-9.0); NEUTROPHILS % (AUTO) 49.1 % (40.0-70.0); PLATELET COUNT (AUTO) 289 K/uL (150-450); RED BLOOD CELL COUNT(AUTO) 2.64 MIL/uL (4.50-5.90); RED CELL DISTRIBUTION WIDTH 16.1 % (11.5-14.5)
[2020-10-21 07:09] LABS: HEMOGLOBIN A1C 5.1 % (3.8-5.6)
[2020-10-21 08:01] VITALS: BP 136/72
[2020-10-21 08:29] LABS: CALCIUM, TOTAL 9.5 mg/dL (8.8-10.5); CREATININE 1.28 mg/dL (0.60-1.30); POTASSIUM 5.2 mmol/L (3.5-5.1)
[2020-10-21] MEDS: DOCUSATE SODIUM 250 MG CAPSULE PO SCH ×2 (08:34→20:19)
[2020-10-21] MEDS: FERROUS GLUCONATE 324 MG TABLET PO SCH ×2 (08:34→17:40)
[2020-10-21] MEDS: MULTIVITAMINS WITH IRON TABLET PO SCH (08:34)
[2020-10-21] MEDS: NICOTINE 21 MG/24 HOUR PATCH TD SCH (08:34)
[2020-10-21] MEDS: QUEtiapine FUMARATE 200 MG TABLET PO SCH ×3 (08:34→20:19)
[2020-10-21] MEDS: APIXABAN 2.5 MG TABLET PO SCH ×2 (08:34→20:19)
[2020-10-21] MEDS: OMEPRAZOLE 20 MG CAPSULE PO SCH (08:34)
[2020-10-21] MEDS: ETHYL ALCOHOL 62% ANTISEPTIC NASAL INHALANT 0.6 ML AMPUL NASAL SCH ×2 (08:39→20:18)
[2020-10-21] MEDS: 0.9% SODIUM CHLORIDE 10 ML SYRINGE IVP SCH ×2 (08:40→17:41)
[2020-10-21] MEDS ORDERED: HYDROCODONE/ACETAMINOPHEN 10-325 MG TABLET PO PRN (09:00)
[2020-10-21] MEDS ORDERED: HYDROCODONE/ACETAMINOPHEN 5-325 MG TABLET PO PRN (09:00)
[2020-10-21] MEDS: GABAPENTIN 300 MG CAPSULE PO SCH ×2 (09:13→20:19)
[2020-10-21 16:13] VITALS: BP 130/74
[2020-10-21] MEDS: ATORVASTATIN CALCIUM 40 MG TABLET PO SCH (20:19)
[2020-10-21] MEDS: SENNA 187 MG TABLET PO SCH (20:19)
[2020-10-22 00:04] VITALS: BP 118/66
[2020-10-22] MEDS: 0.9% SODIUM CHLORIDE 10 ML SYRINGE IVP SCH ×4 (00:13→23:32)
[2020-10-22] MEDS ORDERED: NICO-650 TP (03:41)
[2020-10-22] MEDS: FERROUS GLUCONATE 324 MG TABLET PO SCH ×2 (08:02→17:49)
[2020-10-22] MEDS: QUEtiapine FUMARATE 200 MG TABLET PO SCH ×3 (08:02→20:26)
[2020-10-22] MEDS: GABAPENTIN 300 MG CAPSULE PO SCH ×2 (08:02→20:26)
[2020-10-22] MEDS: OMEPRAZOLE 20 MG CAPSULE PO SCH (08:02)
[2020-10-22] MEDS: MULTIVITAMINS WITH IRON TABLET PO SCH (08:02)
[2020-10-22] MEDS: APIXABAN 2.5 MG TABLET PO SCH ×2 (08:02→20:26)
[2020-10-22] MEDS: DOCUSATE SODIUM 250 MG CAPSULE PO SCH ×2 (08:02→20:26)
[2020-10-22] MEDS: NICOTINE 21 MG/24 HOUR PATCH TD SCH (08:02)
[2020-10-22] MEDS: ETHYL ALCOHOL 62% ANTISEPTIC NASAL INHALANT 0.6 ML AMPUL NASAL SCH ×2 (08:02→20:25)
[2020-10-22 08:42] VITALS: BP 148/83
[2020-10-22] MEDS ORDERED: HYDROCODONE/ACETAMINOPHEN 10-325 MG TABLET PO PRN (10:45)
[2020-10-22 15:21] VITALS: BP 151/77
[2020-10-22] MEDS: SENNA 187 MG TABLET PO SCH (20:26)
[2020-10-22] MEDS: ATORVASTATIN CALCIUM 40 MG TABLET PO SCH (20:26)
[2020-10-22 22:10] VITALS: BP 154/76
[2020-10-23] VITALS: BP 150/75
[2020-10-23 08:00] VITALS: BP 155/75
[2020-10-23] MEDS: FERROUS GLUCONATE 324 MG TABLET PO SCH ×2 (09:00→16:48)
[2020-10-23] MEDS: DOCUSATE SODIUM 250 MG CAPSULE PO SCH ×2 (09:01→20:00)
[2020-10-23] MEDS: ETHYL ALCOHOL 62% ANTISEPTIC NASAL INHALANT 0.6 ML AMPUL NASAL SCH ×2 (09:01→20:00)
[2020-10-23] MEDS: APIXABAN 2.5 MG TABLET PO SCH ×2 (09:01→20:00)
[2020-10-23] MEDS: 0.9% SODIUM CHLORIDE 10 ML SYRINGE IVP SCH ×3 (09:01→22:54)
[2020-10-23] MEDS: GABAPENTIN 300 MG CAPSULE PO SCH ×2 (09:01→20:00)
[2020-10-23] MEDS: OMEPRAZOLE 20 MG CAPSULE PO SCH (09:01)
[2020-10-23] MEDS: MULTIVITAMINS WITH IRON TABLET PO SCH (09:02)
[2020-10-23] MEDS: QUEtiapine FUMARATE 200 MG TABLET PO SCH ×3 (09:02→20:00)
[2020-10-23] MEDS: NICOTINE 21 MG/24 HOUR PATCH TD SCH (09:02)
[2020-10-23 16:55] VITALS: BP 152/89
[2020-10-23] MEDS: HYDROCODONE/ACETAMINOPHEN 5-325 MG TABLET PO PRN (18:09)
[2020-10-23] MEDS: ATORVASTATIN CALCIUM 40 MG TABLET PO SCH (20:00)
[2020-10-23] MEDS: TAMSULOSIN HCL 0.4 MG CAPSULE PO SCH (20:00)
[2020-10-23] MEDS: SENNA 187 MG TABLET PO SCH (20:00)
[2020-10-24 02:25] VITALS: BP 137/66
[2020-10-24 08:01] VITALS: BP 138/80
[2020-10-24] MEDS: MULTIVITAMINS WITH IRON TABLET PO SCH (08:07)
[2020-10-24] MEDS: NICOTINE 21 MG/24 HOUR PATCH TD SCH (08:07)
[2020-10-24] MEDS: QUEtiapine FUMARATE 200 MG TABLET PO SCH ×3 (08:07→20:27)
[2020-10-24] MEDS: OMEPRAZOLE 20 MG CAPSULE PO SCH (08:07)
[2020-10-24] MEDS: FERROUS GLUCONATE 324 MG TABLET PO SCH ×2 (08:07→17:29)
[2020-10-24] MEDS: DOCUSATE SODIUM 250 MG CAPSULE PO SCH ×2 (08:08→20:27)
[2020-10-24] MEDS: GABAPENTIN 300 MG CAPSULE PO SCH ×2 (08:08→20:27)
[2020-10-24] MEDS: APIXABAN 2.5 MG TABLET PO SCH ×2 (08:08→20:27)
[2020-10-24] MEDS: 0.9% SODIUM CHLORIDE 10 ML SYRINGE IVP SCH ×3 (08:09→23:01)
[2020-10-24] MEDS: ETHYL ALCOHOL 62% ANTISEPTIC NASAL INHALANT 0.6 ML AMPUL NASAL SCH ×2 (08:09→20:27)
[2020-10-24] MEDS: HYDROCODONE/ACETAMINOPHEN 5-325 MG TABLET PO PRN (08:51)
[2020-10-24 16:01] VITALS: BP 142/86
[2020-10-24] MEDS: TAMSULOSIN HCL 0.4 MG CAPSULE PO SCH (20:27)
[2020-10-24] MEDS: ATORVASTATIN CALCIUM 40 MG TABLET PO SCH (20:27)
[2020-10-24] MEDS: SENNA 187 MG TABLET PO SCH (20:27)
[2020-10-25 01:00] VITALS: BP 146/72
[2020-10-25] MEDS ORDERED: TAMS-13 PO (03:36)
[2020-10-25] MEDS ORDERED: HYDR-4723 PO (03:36)
[2020-10-25] MEDS ORDERED: ASPI-1450 PO (03:36)
[2020-10-25] MEDS ORDERED: SENN-2 PO (03:36)
[2020-10-25 06:57] LABS: CREATININE 1.38 mg/dL (0.60-1.30); POTASSIUM 4.4 mmol/L (3.5-5.1)
[2020-10-25 06:58] LABS: CALCIUM, TOTAL 9.1 mg/dL (8.8-10.5)
[2020-10-25 07:40] VITALS: BP 147/70
[2020-10-25] MEDS: NICOTINE 21 MG/24 HOUR PATCH TD SCH (08:29)
[2020-10-25] MEDS: OMEPRAZOLE 20 MG CAPSULE PO SCH (08:30)
[2020-10-25] MEDS: ETHYL ALCOHOL 62% ANTISEPTIC NASAL INHALANT 0.6 ML AMPUL NASAL SCH (08:30)
[2020-10-25] MEDS: DOCUSATE SODIUM 250 MG CAPSULE PO SCH (08:30)
[2020-10-25] MEDS: APIXABAN 2.5 MG TABLET PO SCH (08:30)
[2020-10-25] MEDS: FERROUS GLUCONATE 324 MG TABLET PO SCH (08:30)
[2020-10-25] MEDS: QUEtiapine FUMARATE 200 MG TABLET PO SCH ×2 (08:30→12:15)
[2020-10-25] MEDS: GABAPENTIN 300 MG CAPSULE PO SCH (08:31)
[2020-10-25] MEDS: MULTIVITAMINS WITH IRON TABLET PO SCH (08:31)
[2020-10-25] MEDS: 0.9% SODIUM CHLORIDE 10 ML SYRINGE IVP SCH (08:32)
[2020-10-25 11:16] LABS: COVID AG,FIA SOURCE NASOPHARYNGEAL
[2020-10-25 12:10] VITALS: BP 139/83
== END 2020-10-25 15:00 | DRG 536 ==
LOC: 2WR 16:10
PROVIDERS: ADMIT Physical Medicine & Rehabilitation; ATTEND Physical Medicine & Rehabilitation
DX: S72.142A Displaced intertrochanteric fracture of left femur, initial encounter for closed fracture (principal); J44.9 Chronic obstructive pulmonary disease, unspecified; D64.9 Anemia, unspecified; I10 Essential (primary) hypertension; E78.5 Hyperlipidemia, unspecified; M81.0 Age-related osteoporosis without current pathological fracture; F20.9 Schizophrenia, unspecified; R53.81 Other malaise; Y99.8 Other external cause status; R33.9 Retention of urine, unspecified
CPT/HCPCS: 80048; 80053; 82271; 83036; 85007; 85025; 85027; 87081; 97110; 97112; 97116; 97163; 97166; 97530; 97535; 99366; J7030